=== PATIENT | female | born 1990 | race Two or more races ===

== ENCOUNTER 2018-07-01 12:42 | Emergency (ER) | payer OTHER ==
[2018-07-01 13:04] VITALS: BP 100/74; PULSE 70; TEMP 98.3; BMI 22.1
--- NOTE | 2018-07-01 14:11 | PDOC ---
History of Present Illness - General Chief Complaint: Injury Stated Complaint: HEAD INJURY Time Seen by Provider: 07/01/18 13:57 History Source: Patient Exam Limitations: No Limitations - History of Present Illness Initial Comments: 07/01/18 14:22 Patient states was jumping over a dog gate yesterday when she struck the top of her head On a Low causing her to fall. Patient states was mildly dazed but had no loss of consciousness, has been nauseas and vomited x 2 today. 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 Denies drainage from nose or ears, denies neck pain, denies any other neurologic changes. Occurred: reports: yesterday Severity: reports: mild, moderate Pain Location: reports: head. denies: neck Method of Injury: Yes: direct blow Loss of Consciousness: dazed Associated Symptoms (Fall): confusion, headache, lightheadedness Past History - Travel Traveled outside of the country in the last 30 days: No Close contact w/someone who was outside of country & ill: No - Past Medical History Allergies/Adverse Reactions: Allergies Allergy/AdvReac Type Severity Reaction Status Date / Time amoxicillin AdvReac Verified 07/01/18 12:52 Home Medications: Ambulatory Orders NK [No Known Home Medication] 07/01/18 COPD: No - Immunization History Immunization Up to Date: Yes - Suicide/Smoking/Psychosocial Hx Smoking History: Never smoked Review of Systems - Review of Systems Able to Perform ROS?: Yes Is the patient limited [place] proficient: Yes Constitutional: Yes: Symptoms Reported, See HPI, Loss of Appetite, Malaise. No : Fever HEENTM: Yes: See HPI. No: Symptoms Reported, Blurred Vision, Double Vision Respiratory: Yes: See HPI. No: Symptoms reported Cardiac (ROS): No: Symptoms Reported Musculoskeletal: Yes: Symptoms Reported, See HPI Integumentary: Yes: Symptoms Reported, See HPI Neurological: Yes: See HPI, Headache. No: Symptoms reported, Numbness, Paresthesia, Pre-Existing Deficit, Tingling, Weakness, Unsteady Gait All Other Systems: Reviewed and Negative *Physical Exam - Vital Signs Last Vital Signs Temp Pulse Resp BP Pulse Ox 98.3 F 70 20 100/74 98 07/01/18 12:50 07/01/18 12:50 07/01/18 12:50 07/01/18 12:50 07/01/18 12:50 - Physical Exam General Appearance: Yes: Nourished, Appropriately Dressed, Apparent Distress, Mild Distress HEENT: positive: AMIRAH, Normal ENT Inspection, TMs Normal (no hemotympanum, no drainage from nose or ears, no evidence of skull fracture), Pharynx Normal, Other (has contusion to left occiput/crown of head without crepitus or step-offs , is approximately 2 cm). negative: Rhinorrhea Neck: positive: Supple. negative: Tender (no apical spine tenderness, crepitus or step-offs. Has poor range of motion at neck.), Lymphadenopathy (R), Lymphadenopathy (L) Respiratory/Chest: positive: Lungs Clear, Normal Breath Sounds Moderate Sedation - Procedure Monitoring Vital Signs: Procedure Monitoring Vital Signs Temperature 98.3 F 07/01/18 12:50 Pulse Rate 70 07/01/18 12:50 Respiratory Rate 20 07/01/18 12:50 Blood Pressure 100/74 07/01/18 12:50 O2 Sat by Pulse Oximetry (%) 98 07/01/18 12:50 Progress Note - Progress Note Progress Note: Superficial head injury without loss of consciousness. With a mild concussive syndrome. No evidence of skull fracture or clinical evidence of intracranial pathology therefore will hold CAT scan and patient given explanation to return for worsened symptoms, or any changes in neurologic behavior, *DC/Admit/Observation/Transfer Diagnosis at time of Disposition: Head injury, acute Qualifiers: Encounter type: initial encounter Qualified Code(s): S09.90XA - Unspecified injury of head, initial encounter - Discharge Dispostion Disposition: HOME Condition at time of disposition: Stable Decision to Admit order: No - Referrals Referrals: Luis Alberto Gupta MD [Primary Care Provider] - - Patient Instructions Printed Discharge Instructions: DI for Closed Head Injury Additional Instructions: Rest, avoid strenuous activity or exercise for the next 24-48 hours May use ice on contusions as needed. May use Tylenol or Motrin for pain relief Watch and seek evaluation for changes in behavior including crankiness, inconsolability, quietness/ sleepiness that is inappropriate, tiredness that is inappropriate, watch for worsening and changes of behavior. Seek immediate evaluation/return to emergency department for vomiting, mental status changes, pain that's out of proportion , bloody drainage from ears or nose. Followup with private physician as needed in one to 2 days for reevaluation - Post Discharge Activity Forms/Work/School Notes: Back to Work
[2018-07-01] MEDS ORDERED: KETOROLAC TROMETHAMINE 60 MG/2 ML VIAL IM ONE (14:12)
[2018-07-01] MEDS ORDERED: KETOROLAC TROMETHAMINE 60 MG/2 ML VIAL ONE (14:58)
== END 2018-07-01 15:09 | disposition home or self-care (01) ==
LOC: JERFT 12:42 → JER 12:42 → JERFT 15:09
PROC: 3E0233Z Introduction of Anti-inflammatory into Muscle, Percutaneous Approach (ICD-10-PCS; principal; 2018-07-01)
DX: F07.81 Postconcussional syndrome (principal); W22.8XXA Striking against or struck by other objects, initial encounter; Y93.89 Activity, other specified; Y92.89 Other specified places as the place of occurrence of the external cause; Y99.8 Other external cause status
CPT/HCPCS: 84703; 99281-25

== ENCOUNTER 2018-11-16 05:21 | Emergency (ER) | payer OTHER ==
[2018-11-16 05:44] VITALS: BMI 27.6
[2018-11-16] MEDS ORDERED: DEXTROSE 5%-LACTATED RINGERS 500 ML IV SCH (07:00)
[2018-11-16 07:58] LABS: PH,URINE 5.5 (5.0-8.0); URINE APPEARANCE CLEAR; URINE BILIRUBIN NEGATIVE (NEGATIVE); URINE COLOR YELLOW; URINE GLUCOSE (UA) 1+ (NEGATIVE); URINE KETONE NEGATIVE (NEGATIVE); URINE LEUK ESTERASE NEGATIVE (NEGATIVE); URINE NITRITE NEGATIVE (NEGATIVE); URINE PROTEIN NEGATIVE (NEGATIVE); URINE UROBILINOGEN 0.2 mg/dL (0.2-1.0)
[2018-11-16 07:58] LABS: HEMATOCRIT 39.5 % (32.4-45.2); HEMOGLOBIN 13.4 GM/dL (10.7-15.3); MCH 29.8 pg (25.7-33.7); MCHC 33.9 g/dl (32.0-36.0); MEAN CELL VOLUME 87.9 fl (80-96); MEAN PLT VOLUME 9.7 fl (7.5-11.1); PLATELET COUNT 225 K/MM3 (134-434); RBC 4.49 M/mm3 (3.60-5.2); WHITE BLOOD COUNT 8.1 K/mm3 (4.0-10.0)
[2018-11-16 08:00] VITALS: BP 104/67; PULSE 88; TEMP 98
[2018-11-16] MEDS ORDERED: DEXTROSE 5%-LACTATED RINGERS 1,000 ML IV SCH (08:00)
[2018-11-16 08:25] LABS: ALBUMIN 3.2 g/dl (3.4-5.0); ALK PHOS 59 U/L (45-117); ANION GAP 9 MMOL/L (8-16); BILIRUBIN,TOTAL < 0.1 mg/dL (0.2-1); BLOOD UREA NITROGEN 9 mg/dL (7-18); CALCIUM 9.2 mg/dL (8.5-10.1); CHLORIDE 105 mmol/L (98-107); CO2 22 mmol/L (21-32); CREATININE 0.5 mg/dL (0.55-1.3); GLUCOSE,RANDOM 105 mg/dL (74-106); POTASSIUM 3.8 mmol/L (3.5-5.1); SGOT/AST 17 U/L (15-37); SGPT/ALT 20 U/L (13-61); SODIUM 136 mmol/L (136-145); TOT PROT 6.9 g/dl (6.4-8.2)
[2018-11-16] MEDS ORDERED: ACETAMINOPHEN INJECTION 100 ML IVPB ONE (09:14)
[2018-11-16] MEDS ORDERED: ACETAMINOPHEN 1000 MG/100 ML VIAL (NON FORMULARY) IVPB ONE (09:30)
== END 2018-11-16 12:50 | disposition home or self-care (01) ==
LOC: JER 05:21
DX: O26.892 Other specified pregnancy related conditions, second trimester (principal); O99.612 Diseases of the digestive system complicating pregnancy, second trimester; K52.9 Noninfective gastroenteritis and colitis, unspecified; Z3A.19 19 weeks gestation of pregnancy
CPT/HCPCS: 36415; 80053; 81003; 85027; 87086; 99281-25; J0131

== ENCOUNTER 2019-04-11 12:38 | Inpatient (IN) | payer OTHER ==
--- NOTE | 2019-04-11 13:44 | HP ---
Past Medical History - Primary Care Physician PCP:: Carol Rogers - Admission Chief Complaint: Post dates History of Present Illness: 29 yo EDC EGA week admittted for induction of labor no rom no bleeding no pain no ADAIR History Source: Patient Limitations to Obtaining History: No Limitations - Smoking History Smoking history: Never smoked Have you smoked in the past 12 months: No - Alcohol/Substance Use Hx Alcohol Use: No History of Substance Use: reports: None - Social History Usual Living Arrangement: Yes: With Spouse History of Recent Travel: No Home Medications - Allergies Allergies/Adverse Reactions: Allergies Allergy/AdvReac Type Severity Reaction Status Date / Time amoxicillin AdvReac Intermediate Hives Verified 04/11/19 13:28 - Home Medications Home Medications: Ambulatory Orders NK [No Known Home Medication] 07/01/18 Review of Systems - Review of Systems Constitutional: reports: No Symptoms Eyes: reports: No Symptoms HENT: reports: No Symptoms Neck: reports: No Symptoms Cardiovascular: reports: No Symptoms Respiratory: reports: No Symptoms Gastrointestinal: reports: No Symptoms Genitourinary: reports: No Symptoms Breasts: reports: No Symptoms Reported Musculoskeletal: reports: No Symptoms Integumentary: reports: No Symptoms Neurological: reports: No Symptoms Endocrine: reports: No Symptoms Hematology/Lymphatic: reports: No Symptoms Psychiatric: reports: No Symptoms Physical Exam - Maternity Constitutional: Yes: Well Nourished, No Distress Breast(s): Yes: WNL - Abdominal Exam/OB Fundal Height: 40 Number of Fetuses: Single Presentation: Vertex Contractions: No Monitor Mode: External Heart Rate (range): 145 Heart Rate Location: [facility] Category: I - Vaginal Exam/OB Speculum Exam: Yes Dilatation (cm): 1-2 Effacement (%): 50 Amniotic Membrane Status: Intact Presentation: Vertex/Position Station: -1 - Physical Exam Musculoskeletal: Yes: WNL Edema: No Psychiatric: Yes: WNL, Alert, Oriented Hemorrhage Risk Assessment - Risk Factors Risk Score: 0 Risk Level: Low Risk Problem List - Problems (1) Post-dates Code(s): O48.0 - POST-TERM Assessment/Plan IUP at 40 weeks Cat 1 Induction Plan Cervidil
[2019-04-11] MEDS ORDERED: BUTORPHANOL TARTRATE 1 MG/ML VIAL IVPB ONE (13:46)
[2019-04-11] MEDS ORDERED: PROMETHAZINE HCL 25 MG/1 ML VIAL IVPB ONE (13:46)
[2019-04-11] MEDS ORDERED: DINOPROSTONE 10 MG VAGINAL SUPPOSITORY VG ONE (13:48)
[2019-04-11 13:52] LABS: BASO % 0.7 % (0-2.0); EOS % 1.4 % (0-4.5); HEMATOCRIT 38.6 % (32.4-45.2); HEMOGLOBIN 13.1 GM/dL (10.7-15.3); LYMPH % 17.1 % (8-40); MCH 29.8 pg (25.7-33.7); MCHC 33.9 g/dl (32.0-36.0); MEAN CELL VOLUME 87.9 fl (80-96); MONO % 7.6 % (3.8-10.2); NEUT % 73.2 % (42.8-82.8); PLATELET COUNT 166 K/MM3 (134-434); RBC 4.39 M/mm3 (3.60-5.2); RDW 14.1 % (11.6-15.6)
[2019-04-11] MEDS ORDERED: ELECTROLYTE-148 SOLN 1,000 ML IV SCH (14:00)
[2019-04-11 14:14] LABS: INR 0.92 (0.83-1.09); PROTHROMBIN TIME (PATIENT) 10.8 SEC (9.7-13.0)
[2019-04-11 14:16] VITALS: BMI 34.3
[2019-04-11 14:16] LABS: BLOOD UREA NITROGEN 9.2 mg/dL (7-18); CALCIUM 9.3 mg/dL (8.5-10.1); CREATININE 0.5 mg/dL (0.55-1.3); POTASSIUM 3.8 mmol/L (3.5-5.1)
[2019-04-11 14:17] LABS: ACTIVATED PTT 30.1 SECONDS (25.2-36.5)
[2019-04-11] MEDS ORDERED: OXYTOCIN 30 UNITS in 0.9% NS 30 UNIT/500 ML INFUS.BAG IVPB ONE (19:44)
--- NOTE | 2019-04-11 19:52 | PN ---
Ante-Partal Exam - Subjective Subjective: Pt with mild cpontractions Vital Signs: Vital Signs Temperature 98.2 F 04/11/19 18:00 Pulse Rate 105 H 04/11/19 18:00 Respiratory Rate 20 04/11/19 18:00 Blood Pressure 120/68 04/11/19 18:00 O2 Sat by Pulse Oximetry (%) Bleeding: No Headache: No Right upper quadrant pain: No - Contractions Contractions: Yes Regularity: Regular Monitor Mode: External - Exam during Labor Heart Rate: 140 Variability: Moderate Category: I Monitor Accelerations: Present Monitor Decelerations: None Exam: Vaginal Dilatation (cm): 2-3 Effacement (%): 70 Amniotic Membrane Status: Intact Presentation: Vertex Station: -2 - Intrapartum Hemorrhage Risk Risk Score: 0 Risk Level: Low Risk - Assessment/Plan Assessment/Plan: IUP at 40 weeks prodromal labor plan pitocin cervidil removed
[2019-04-11] MEDS ORDERED: OXYTOCIN 30 UNITS in 0.9% NS 30 UNIT/500 ML INFUS.BAG IVPB SCH (20:00)
[2019-04-11] MEDS ORDERED: LIDO 2%/EPI 1:200000 PRESRVFRE (20 ML SDVIAL) ONE (21:57)
[2019-04-11] MEDS ORDERED: BUPIVACAINE HCL/PF 2.5 MG/ML - 30 ML VIAL IJ ONE (21:57)
[2019-04-11] MEDS ORDERED: BUPIVACAINE HCL 0.25% 125 MG/50 ML VIAL INF ONE (22:03)
[2019-04-11] MEDS ORDERED: BUPIVACAINE HCL/PF 8.4 ML in SODIUM CHLORIDE 41.6 ML NR SCH (22:05)
--- NOTE | 2019-04-12 00:04 | PN ---
Ante-Partal Exam - Subjective Subjective: Pt sp epidural no pain no ROM no bleeding Vital Signs: Vital Signs Temperature 98.2 F 04/11/19 18:00 Pulse Rate 97 H 04/11/19 21:00 Respiratory Rate 20 04/11/19 21:00 Blood Pressure 120/68 04/11/19 21:00 O2 Sat by Pulse Oximetry (%) Bleeding: No Headache: No Visual changes: No Right upper quadrant pain: No - Contractions Contractions: Yes Regularity: Regular Intensity: Mild/Mod Monitor Mode: External - Exam during Labor Heart Rate: 155 Variability: Moderate Heart Rate Location: [facility] Category: I Monitor Accelerations: Present Monitor Decelerations: None Exam: Vaginal Dilatation (cm): 4 Effacement (%): 70 Amniotic Membrane Status: Ruptured Amniotic Fluid: Clear Presentation: Vertex Station: -1 - Intrapartum Hemorrhage Risk Risk Score: 0 Risk Level: Low Risk - Assessment/Plan Assessment/Plan: IUP at 40 week Cat 1 AROM Plan continue pitocin continue epidural anticipate Vaginal delivery
--- NOTE | 2019-04-12 02:00 | PN ---
Ante-Partal Exam - Subjective Subjective: Pt doing well Pt on 3 mu pitocin Vital Signs: Vital Signs Temperature 97.9 F 04/12/19 00:00 Pulse Rate 97 H 04/11/19 21:00 Respiratory Rate 20 04/11/19 21:00 Blood Pressure 120/68 04/11/19 21:00 O2 Sat by Pulse Oximetry (%) Bleeding: No Headache: No Visual changes: No Right upper quadrant pain: No - Contractions Contractions: Yes Regularity: Regular - Exam during Labor Category: I Monitor Accelerations: Present Monitor Decelerations: Early Exam: Vaginal Dilatation (cm): 4 Effacement (%): 70 Amniotic Membrane Status: Ruptured Presentation: Vertex Station: -1 - Intrapartum Hemorrhage Risk Risk Score: 0 Risk Level: Low Risk - Assessment/Plan Assessment/Plan: IUp at 40 weeks Cat 1 Plan continue pitocin
--- NOTE | 2019-04-12 02:21 | PN ---
Ante-Partal Exam - Subjective Subjective: EFM with variable dec - pitocin was on 2 mu will dc pit due to varaible decels Vital Signs: Vital Signs Temperature 97.9 F 04/12/19 00:00 Pulse Rate 97 H 04/11/19 21:00 Respiratory Rate 20 04/11/19 21:00 Blood Pressure 120/68 04/11/19 21:00 O2 Sat by Pulse Oximetry (%) Bleeding: No Headache: No Visual changes: No Right upper quadrant pain: No - Contractions Contractions: Tachysystole (Greater than 5 contractions in a 10 minute period) Monitor Mode: External - Exam during Labor Variability: Moderate Category: II Monitor Accelerations: Present Monitor Decelerations: Variable Exam: Vaginal Dilatation (cm): 5 Effacement (%): 80 Amniotic Membrane Status: Ruptured Presentation: Vertex Station: -1 - Assessment/Plan Assessment/Plan: Cat 2 active labor with progress Plan DC Pitocin Oxygen will reevaluate after DC pitocin
[2019-04-12] MEDS ORDERED: WITCH HAZEL 50% (TUCKS) 40 PAD/JAR PAD TP PRN (04:16)
[2019-04-12] MEDS ORDERED: BISACODYL 10 MG SUPP.RECT PR PRN (04:16)
[2019-04-12] MEDS ORDERED: BENZOCAINE 20% 57 GM BOTTLE TP PRN (04:16)
[2019-04-12] MEDS ORDERED: METHYLERGONOVINE MALEATE 0.2 MG/1 ML AMP IM PRN (04:16)
[2019-04-12] MEDS ORDERED: BENZOCAINE 28 GM HEMORRHOIDAL OINTMENT PR PRN (04:16)
--- NOTE | 2019-04-12 04:16 | PN ---
Ante-Partal Exam - Subjective Subjective: Pt with urge to push Vital Signs: Vital Signs Temperature 98.8 F 04/12/19 03:00 Pulse Rate 97 H 04/12/19 03:15 Respiratory Rate 20 04/12/19 03:15 Blood Pressure 107/50 L 04/12/19 03:15 O2 Sat by Pulse Oximetry (%) 98 04/12/19 03:15 Headache: No Visual changes: No Right upper quadrant pain: No - Contractions Contractions: Yes Regularity: Regular Monitor Mode: External - Exam during Labor Variability: Moderate Heart Rate Location: [facility] Category: I Monitor Accelerations: Present Monitor Decelerations: Early Exam: Vaginal Dilatation (cm): 7 Effacement (%): 80 Amniotic Membrane Status: Ruptured Presentation: Vertex Station: 0 - Intrapartum Hemorrhage Risk Risk Score: 0 Risk Level: Low Risk - Assessment/Plan Assessment/Plan: Active labor Cat 1 Plan continue observation anticipate vaginal delivery
[2019-04-12] MEDS ORDERED: OXYTOCIN 20 UNITS in 0.9% NS 20 UNIT/1,000 ML INFUS.BAG IV ONE (09:28)
[2019-04-12] MEDS ORDERED: LIDOCAINE HCL 1% PRESERVATIVE FREE - 30ML VIAL ONE (09:30)
[2019-04-12] MEDS ORDERED: ACETAMINOPHEN 325 MG TABLET (FP) ONE ×3 (10:02→21:37)
[2019-04-12] MEDS ORDERED: IBUPROFEN 600 MG TABLET (FP) PO ONE ×3 (10:02→21:37)
--- NOTE | 2019-04-12 10:02 | PN ---
Delivery - Delivery Vaginal Delivery: Shoulder/Difficult Maneuvers: Macroberts, Suprapubic pressure Type of Anesthesia: Local, Epidural Episiotomy/Laceration: 2nd degree EBL (cc): 300 Delivery, Single - Stages of Labor Date of Delivery: 04/12/19 Time of Delivery: 09:42 Date Placenta Delivered: 04/12/19 Time Placenta Delivered: 09:45 Placenta: Yes: Spontaneous - Condition of Sales Specialist/Oyster Buyer Present: No Position: Right, OA - 1 Minute Total Score: 8 5 Minutes Total Score: 8 - [place] Feeding Plan Initial Plan: Exclusive throughout hospitalization Remarks - Remarks Remarks: from DELPHINE position nuchal cord noted after delivery of head, reduced, compound presentation noted (posterior arm/hand) anterior shoulder delivered with Macroberts maneuver and suprapubic pressure, otherwise uncomplicated 2nd degree laceration noted, repaired with 2-0 chromic in usual fashion after injection of 10cc of 1% lidocaine baby to nursery for evaluation mom stable oxytocin infusing after delivery sponge needle and instrument count correct after delivery
[2019-04-12] MEDS: ACETAMINOPHEN 325 MG TABLET (FP) PO PRN ×3 (10:05→21:39)
[2019-04-12] MEDS: IBUPROFEN 600 MG TABLET (FP) PO PRN ×3 (10:05→21:39)
[2019-04-12] MEDS ORDERED: OXYTOCIN 20 UNITS in 0.9% NS 20 UNIT/1,000 ML INFUS.BAG IV SCH (10:15)
[2019-04-12] MEDS ORDERED: BENZOCAINE 20% 57 GM BOTTLE TP ONE (14:24)
--- NOTE | 2019-04-13 05:38 | PN ---
Post Progress Note - Subjective Subjective: Pt doing well, no complaints. Tolerating diet, ambulating, voiding, passing flatus Type of Delivery: Vital Signs: Vital Signs Temperature 98.5 F 04/13/19 01:45 Pulse Rate 84 04/13/19 01:45 Respiratory Rate 20 04/13/19 01:45 Blood Pressure 106/61 04/13/19 01:45 O2 Sat by Pulse Oximetry (%) 97 04/12/19 10:45 Uterus: Yes: Fundus Firm Abdomen/GI: Yes: Abdomen soft Lochia: Yes: Rubra Lochia, amount: Small Extremities: Yes: Calves non-tender, Edema (1+ nonpitting) Perineum: Yes: Laceration (repaired, in tact) Activity: Ambulating - Labs Labs: CBC WBC 7.0 K/mm3 (4.0-10.0) 04/11/19 13:18 RBC 4.39 M/mm3 (3.60-5.2) 04/11/19 13:18 Hgb 13.1 GM/dL (10.7-15.3) 04/11/19 13:18 Hct 38.6 % (32.4-45.2) 04/11/19 13:18 MCV 87.9 fl (80-96) 04/11/19 13:18 MCH 29.8 pg (25.7-33.7) 04/11/19 13:18 MCHC 33.9 g/dl (32.0-36.0) 04/11/19 13:18 RDW 14.1 % (11.6-15.6) 04/11/19 13:18 Plt Count 166 K/MM3 (134-434) 04/11/19 13:18 MPV 9.0 fl (7.5-11.1) 04/11/19 13:18 Absolute Neuts (auto) 5.1 K/mm3 (1.5-8.0) 04/11/19 13:18 Neutrophils % 73.2 % (42.8-82.8) 04/11/19 13:18 Lymphocytes % 17.1 % (8-40) D 04/11/19 13:18 Monocytes % 7.6 % (3.8-10.2) 04/11/19 13:18 Eosinophils % 1.4 % (0-4.5) 04/11/19 13:18 Basophils % 0.7 % (0-2.0) 04/11/19 13:18 Nucleated RBC % 0 % (0-0) 04/11/19 13:18 Problem List - Problems (1) Vaginal delivery Code(s): O80 - ENCOUNTER FOR FULL-TERM UNCOMPLICATED DELIVERY Assessment/Plan regular diet PO pain med await a.m cbc encourage ambulation routine care
[2019-04-13 07:50] LABS: BASO % 0.4 % (0-2.0); EOS % 1.2 % (0-4.5); HEMOGLOBIN 12.1 GM/dL (10.7-15.3); LYMPH % 14.5 % (8-40); MCH 29.8 pg (25.7-33.7); MCHC 33.5 g/dl (32.0-36.0); MEAN CELL VOLUME 89.1 fl (80-96); MONO % 7.1 % (3.8-10.2); NEUT % 76.8 % (42.8-82.8); PLATELET COUNT 149 K/MM3 (134-434); RBC 4.05 M/mm3 (3.60-5.2); RDW 14.4 % (11.6-15.6); WHITE BLOOD COUNT 10.8 K/mm3 (4.0-10.0)
[2019-04-13] MEDS ORDERED: DIPHTH,PERTUSS(ACELL),TET 0.5 ML DISP.SYRIN IM ONE (10:00)
[2019-04-13] MEDS ORDERED: IBUPROFEN 600 MG TABLET (FP) PO ONE ×2 (10:25→20:02)
[2019-04-13] MEDS ORDERED: ACETAMINOPHEN 325 MG TABLET (FP) ONE ×2 (10:25→20:02)
[2019-04-13] MEDS: IBUPROFEN 600 MG TABLET (FP) PO PRN ×2 (10:30→20:04)
[2019-04-13] MEDS: ACETAMINOPHEN 325 MG TABLET (FP) PO PRN ×2 (10:31→20:05)
[2019-04-14] MEDS ORDERED: BENZOCAINE 28 GM HEMORRHOIDAL OINTMENT ONE (07:59)
--- NOTE | 2019-04-14 09:24 | DS ---
Physical Exam-GREENKEEPER Vital Signs: Vital Signs Temperature 98.7 F 04/13/19 22:00 Pulse Rate 83 04/13/19 22:00 Respiratory Rate 18 04/13/19 22:00 Blood Pressure 106/64 04/13/19 22:00 O2 Sat by Pulse Oximetry (%) 97 04/12/19 10:45 Labs: CBC, BMP 04/13/19 07:15 04/11/19 13:18 Delivery - Delivery Vaginal Delivery: Shoulder/Difficult Maneuvers: Macroberts, Suprapubic pressure Type of Anesthesia: Local, Epidural Episiotomy/Laceration: Perineal Extension/lac, 2nd degree EBL (cc): 300 Delivery, Single - Stages of Labor Date 1st Stage Initiatied: 04/11/19 Time 1st Stage Initiated: 22:30 Date 2nd Stage Initiated: 04/12/19 Time 2nd Stage Initiated: 09:15 Date of Delivery: 04/12/19 Time of Delivery: 09:42 Time Placenta Delivered: 09:45 Placenta: Yes: Spontaneous - Condition of Systems Applications Programming Lead/Molder Machine Present: No Infant Gender: Male Weight: 8 lb 12 oz Position: Right, OA Total Hours ROM (Hrs/Mins): 9 hours and 51 mins - 1 Minute Total Score: 8 5 Minutes Total Score: 8 - [place] Feeding Plan Initial Plan: Exclusive throughout hospitalization Discharge Summary Reason For Visit: LABOR INDUCTION Current Active Problems Post-dates (Acute) Vaginal delivery (Acute) Condition: Good - Instructions Diet, Activity, Other Instructions: Resume your normal everyday activity as tolerated but no heavy lifting or strenuous exercise until seen by your surgeon. You may walk unlimited amounts and climb stairs. You may resume driving the car when you feel safe and comfortable behind the wheel. No sexual activity as instructed. Wound care If you have stitches, leave them in place. Do not attempt to remove them. They will dissolve on their own. Diet There are no dietary restrictions. Eat healthy, high-fiber foods. Drink 6 to 8 glasses of liquid each day. This will assist in keeping your bowels regular. Pain management You may take Tylenol Ibuprofen (for example, Motrin, Advil etc.) as needed for pain. Call MD for any of the following: Severe pain not relieved by medication Fever of 101 or higher Excessive bleeding or drainage on dressing Inability to urinate Referrals: Carol Rogers MD [Staff Physician] - Disposition: HOME - Home Medications Comprehensive Discharge Medication List: Ambulatory Orders Acetaminophen [Tylenol] 650 mg PO PRN 04/11/19 Tablet 1 tablet PO DAILY 04/11/19 Ibuprofen [Motrin -] 600 mg PO QID PRN #28 tablet 04/14/19
[2019-04-14 13:09] VITALS: BP 107/65; PULSE 84; TEMP 98.3
== END 2019-04-14 13:30 | disposition home or self-care (01) | DRG 560 ==
LOC: JLDR 12:38 → J3W 04-12 13:50
PROVIDERS: ADMIT Obstetrics & Gynecology; ATTEND Obstetrics & Gynecology
PROC: 3E0P7VZ Introduction of Hormone into Female Reproductive, Via Natural or Artificial Opening (ICD-10-PCS; 2019-04-11)
PROC: 10E0XZZ Delivery of Products of Conception, External Approach (ICD-10-PCS; principal; 2019-04-12)
PROC: 0W8NXZZ Division of Female Perineum, External Approach (ICD-10-PCS; 2019-04-12)
PROC: 0KQM0ZZ Repair Perineum Muscle, Open Approach (ICD-10-PCS; 2019-04-12)
DX: O70.1 Second degree perineal laceration during delivery (principal); O48.0 Post-term pregnancy; Z3A.40 40 weeks gestation of pregnancy; Z37.0 Single live birth
CPT/HCPCS: 36415; 59409; 80048; 85025; 85610; 85730; 86593; 86850; 86900; 86901; 90715